=== PATIENT | female | born 1990 | race Caucasian/White ===

== ENCOUNTER 2022-04-17 19:41 | Day surgery (SDC) | payer BC, OTHER ==
[2022-04-17 22:11] VITALS: BMI 33.2
[2022-04-17] MEDS ORDERED: hydrALAZINE 20 MG/ML VIAL SLOW IVP PRN (22:15)
[2022-04-17] MEDS ORDERED: Lactated Ringer's 1,000 ML IV SCH ×2 (22:30)
[2022-04-17 22:43] LABS: #Eosinphils 0.2 10x3/uL (0.0-0.5); #Monocytes 1.5 10x3/uL (0.0-1.1); %Basophils 0.2 % (0.0-2.0); %Eosinophils 1.4 % (0.0-6.0); %Lymphocytes 15.3 % (18.0-47.0); %Monocytes 8.9 % (0.0-10.0); %Neutrophils 72.3 % (40.0-75.0); Hemoglobin 10.1 g/dL (12.0-15.5); Mean Corpuscular HGB CONC 32.1 g/dL (32.0-36.0); Mean Corpuscular Hemoglobin 26.6 pg (27.0-33.0); Mean Corpuscular Volume 82.9 fl (81.6-98.3); Mean Platelet Volume 9.6 fl (7.4-10.4); Platelet Count 354 10x3/uL (150-450); White Blood Cell (WBC) Count 16.7 10x3/uL (3.5-10.5)
== END 2022-04-18 03:00 | disposition home or self-care (01) ==
LOC: CSHERS 19:41 → CSHLD/OP 21:22
PROVIDERS: ATTEND Obstetrics & Gynecology
DX: Z04.3 Encounter for examination and observation following other accident (principal); O32.1XX0 Maternal care for breech presentation, not applicable or unspecified; Z3A.30 30 weeks gestation of pregnancy; V89.2XXA Person injured in unspecified motor-vehicle accident, traffic, initial encounter
CPT/HCPCS: 36415; 76815; 85025; 86850; 86900; 86901; 99283

== ENCOUNTER 2022-06-18 13:13 | Outpatient (CLI) | payer BC | END 2022-06-18 13:14 | disposition home or self-care (01) | LOC: CSHLAB 13:13 | PROVIDERS: ATTEND Advanced Practice Midwife | DX: Z20.822 Contact with and (suspected) exposure to COVID-19 (principal) | CPT/HCPCS: 87811 ==

== ENCOUNTER 2022-06-19 19:00 | Inpatient (IN) | payer BC ==
[2022-06-19] MEDS ORDERED: hydrALAZINE 20 MG/ML VIAL SLOW IVP PRN (19:37)
[2022-06-19] MEDS ORDERED: Ondansetron PF 4 MG/2 ML Vial IVP PRN (19:37)
[2022-06-19] MEDS ORDERED: Ibuprofen 800 MG TAB PO PRN (19:37)
[2022-06-19] MEDS ORDERED: Misoprostol 200 MCG TAB PR PRN (19:37)
[2022-06-19] MEDS ORDERED: HYDROcodone/Acetaminophen 5/325 mg Tablet PO PRN ×2 (19:37)
[2022-06-19] MEDS ORDERED: Carboprost 250 MCG/ML AMP IM PRN (19:37)
[2022-06-19] MEDS ORDERED: Lidocaine 1% (PF) 30 ML VIAL SC PRN (19:37)
[2022-06-19] MEDS ORDERED: Promethazine HCl 25 MG/ML VIAL IM PRN (19:37)
[2022-06-20 04:51] VITALS: BMI 35.2
[2022-06-20] MEDS ORDERED: NS w/ Oxytocin 30 units 500 ML IV SCH ×2 (05:00)
[2022-06-20] MEDS: Lactated Ringer's 1,000 ML IV SCH (05:10)
[2022-06-20] MEDS: Misoprostol 100 MCG TAB VAG SCH ×2 (05:18→10:53)
[2022-06-20 05:53] LABS: Hemoglobin 12.6 g/dL (12.0-15.5); Mean Corpuscular HGB CONC 34.1 g/dL (32.0-36.0); Mean Corpuscular Hemoglobin 28.2 pg (27.0-33.0); Mean Corpuscular Volume 82.6 fl (81.6-98.3); Mean Platelet Volume 10.1 fl (7.4-10.4); Platelet Count 240 10x3/uL (150-450); RBC Distribution Width 18.2 % (11.5-14.5); Red Blood Cell (RBC) Count 4.47 10x6/uL (3.90-5.03); White Blood Cell (WBC) Count 10.5 10x3/uL (3.5-10.5)
[2022-06-20 06:15] LABS: Hep B Surf Ag Non-Reactive S/CO (NonReactive)
[2022-06-20 07:36] LABS: Syphilis Antibody Nonreactive (Nonreactive); Syphilis Antibody Index 0.11 S/CO (<1.00 Non-Reactive)
[2022-06-20] MEDS ORDERED: Bupivacaine/Epinephrine 0.25% 30 ML VIAL ONE (08:00)
[2022-06-21 06:34] LABS: Fetal Membranes Rupture RUPTURE DETECTED (No Rupture)
[2022-06-21] MEDS ORDERED: Fentanyl 2 mcg/Bup 0.1% Cadd 100 ML ONE (12:53)
[2022-06-21] MEDS ORDERED: ePHEDrine Sulfate 50 MG/10 ML VIAL SLOW IVP PRN (12:58)
[2022-06-21] MEDS ORDERED: Naloxone HCl 0.4 mg/ml Vial IVP PRN ×2 (12:58)
[2022-06-21] MEDS ORDERED: Moisturizing Cream (Eucerin) 113 GM JAR TOP PRN (12:58)
[2022-06-21] MEDS ORDERED: Lactated Ringer's 500 ML IV PRN (12:58)
[2022-06-21] MEDS ORDERED: Ondansetron PF 4 MG/2 ML Vial IVP PRN (12:58)
[2022-06-21] MEDS ORDERED: Promethazine HCl 25 MG/ML VIAL IM PRN (12:58)
[2022-06-21] MEDS ORDERED: diphenhydrAMINE 50 MG/ML VIAL IVP PRN (12:58)
[2022-06-21] MEDS ORDERED: Acetaminophen 325 MG TAB PO PRN (12:58)
[2022-06-21] MEDS ORDERED: Communication Order-Pharmacy FS SCH (13:00)
[2022-06-21] MEDS: Fentanyl 2 mcg/Bupivacaine 0.1% Cassette 100 ML EPIDURAL SCH ×2 (16:48→22:05)
[2022-06-22] MEDS ORDERED: Calcium Carbonate 500 MG ChewTAB PO SCH (00:45)
[2022-06-22] MEDS ORDERED: Acetaminophen 500 MG TAB PO PRN (02:25)
[2022-06-22] MEDS: Ampicillin 2 GM in Sodium Chloride 0.9% 100 ML IVPB SCH ×3 (02:35→22:07)
[2022-06-22] MEDS ORDERED: Ampicillin 2 GM VIAL ONE (02:40)
[2022-06-22] MEDS: Gentamicin 300 MG, Admixture Fee 1 EACH in Sodium Chloride 0.9% 100 ML IVPB SCH (03:25)
[2022-06-22] MEDS: Fentanyl 2 mcg/Bupivacaine 0.1% Cassette 100 ML EPIDURAL SCH (04:49)
[2022-06-22] MEDS ORDERED: Misoprostol 200 MCG TAB ONE (07:13)
[2022-06-22] MEDS ORDERED: Tranexamic Acid 1,000 MG/10 ML VIAL ONE (07:14)
[2022-06-22] MEDS ORDERED: Methylergonovine 0.2 MG/ML VIAL ONE (07:14)
[2022-06-22] MEDS ORDERED: NS w/ Oxytocin 30 units 500 ML ONE (07:16)
[2022-06-22] MEDS ORDERED: Fentanyl 100 MCG/2 ML VIAL ONE (08:07)
[2022-06-22] MEDS ORDERED: Lidocaine 1% (PF) 30 ML VIAL ONE (10:31)
[2022-06-22] MEDS ORDERED: Methylergonovine 0.2 MG/ML VIAL IM PRN (12:29)
[2022-06-22] MEDS ORDERED: Boostrix 0.5 ML (Tdap) VIAL IM ONE (12:29)
[2022-06-22] MEDS ORDERED: Lanolin Ointment 7 GM TUBE TOP PRN (12:29)
[2022-06-22] MEDS ORDERED: hydrALAZINE 20 MG/ML VIAL SLOW IVP PRN (12:29)
[2022-06-22] MEDS ORDERED: Misoprostol 200 MCG TAB VAG PRN (12:29)
[2022-06-22] MEDS ORDERED: HYDROcodone/Acetaminophen 5/325 mg Tablet PO PRN ×2 (12:29)
[2022-06-22] MEDS ORDERED: Milk Of Magnesia 30 ML UDCUP PO PRN (12:29)
[2022-06-22] MEDS ORDERED: NS w/ Oxytocin 30 units 500 ML IV SCH (12:29)
[2022-06-22] MEDS ORDERED: Ondansetron PF 4 MG/2 ML Vial IVP PRN (12:29)
[2022-06-22] MEDS ORDERED: Benzocaine-Menthol 82.5 ML CAN TOP PRN (12:29)
[2022-06-22] MEDS ORDERED: Bisacodyl 10 MG SUPP PR PRN (12:29)
[2022-06-22] MEDS: Lactated Ringer's 1,000 ML IV SCH ×2 (13:08→13:10)
[2022-06-22] MEDS: Misoprostol 100 MCG TAB VAG SCH ×3 (13:08→13:10)
[2022-06-22] MEDS: Ibuprofen 800 MG TAB PO SCH ×2 (14:39→22:09)
[2022-06-22] MEDS: Ferrous Sulfate 325 MG TAB PO SCH (16:07)
[2022-06-22] MEDS: Docusate 100 MG CAP PO SCH (22:09)
[2022-06-23] MEDS: Gentamicin 300 MG, Admixture Fee 1 EACH in Sodium Chloride 0.9% 100 ML IVPB SCH (03:11)
[2022-06-23] MEDS: Ampicillin 2 GM in Sodium Chloride 0.9% 100 ML IVPB SCH ×3 (06:03→21:46)
[2022-06-23] MEDS: Ibuprofen 800 MG TAB PO SCH ×3 (06:11→21:46)
[2022-06-23] MEDS: Prenatal Vitamin 1 TAB PO SCH (09:00)
[2022-06-23] MEDS: Ferrous Sulfate 325 MG TAB PO SCH (09:00)
[2022-06-23] MEDS: Docusate 100 MG CAP PO SCH ×2 (10:32→21:45)
[2022-06-24] MEDS: Gentamicin 300 MG, Admixture Fee 1 EACH in Sodium Chloride 0.9% 100 ML IVPB SCH (03:05)
[2022-06-24] MEDS: Docusate 100 MG CAP PO SCH (10:03)
[2022-06-24] MEDS: Prenatal Vitamin 1 TAB PO SCH (10:03)
[2022-06-24] MEDS: Ferrous Sulfate 325 MG TAB PO SCH (10:07)
[2022-06-24 11:30] VITALS: BP 114/73; TEMP 98.7
== END 2022-06-24 13:30 | disposition home or self-care (01) | DRG 805 ==
LOC: CSHLD 06-20 04:18 → CSHPP 06-22 13:49
PROVIDERS: ADMIT Obstetrics & Gynecology; ATTEND Obstetrics & Gynecology
PROC: 3E0P7VZ Introduction of Hormone into Female Reproductive, Via Natural or Artificial Opening (ICD-10-PCS; 2022-06-21)
PROC: 10E0XZZ Delivery of Products of Conception, External Approach (ICD-10-PCS; principal; 2022-06-22)
PROC: 0KQM0ZZ Repair Perineum Muscle, Open Approach (ICD-10-PCS; 2022-06-22)
DX: O42.02 Full-term premature rupture of membranes, onset of labor within 24 hours of rupture (principal); O41.1230 Chorioamnionitis, third trimester, not applicable or unspecified; Z37.0 Single live birth; Z3A.39 39 weeks gestation of pregnancy; O70.1 Second degree perineal laceration during delivery; Z20.822 Contact with and (suspected) exposure to COVID-19
CPT/HCPCS: 36415; 51702; 84112; 85027; 86780; 86850; 86900; 86901; 87340; 87811; J0290; J1580; J2210; J2590; J3490; J7120